=== PATIENT | male | born 1935 ===

== ENCOUNTER 2017-08-18 11:15 | Emergency (ER) | payer MEDICARE, OTHER ==
[2017-08-18 11:22] VITALS: BP 144/82; PULSE 91; RESP 16; TEMP 97.6; O2SAT 98
[2017-08-18] MEDS ORDERED: Tdap Vaccine 0.5 ml Vial (10-64 yrs) IM ONE ×2 (11:27→11:39)
[2017-08-18] MEDS ORDERED: Bacitracin 500 Units/gm Oint Foilpak UD ONE ×2 (11:32→13:33)
--- NOTE | 2017-08-18 11:33 | ED PDOC ---
HPI: General Adult Time Seen by Provider: 08/18/17 11:30 Chief Complaint (Nursing): Trauma Chief Complaint (Provider): FALL/HEAD INJURY History Per: Patient (82 Y/O MALE H/O DM HERE WITH COMPLAINT OF FALL TODAY WHEN HE TRIPPED AND FELL ON STAIRS TODAY. NO LOC AFTER HEAD INJURY. IS NOT ON ANY ANTICOAGULANTS. NOTES ADDITIONAL NECK PAIN/RIGHT HAND PAIN/RIGHT KNEE PAIN.) Past Medical History Reviewed: Historical Data, Nursing Documentation, Vital Signs Vital Signs: Last Vital Signs Temp 97.6 F 08/18/17 11:18 Pulse 91 H 08/18/17 11:18 Resp 16 08/18/17 11:18 BP 144/82 08/18/17 11:18 Pulse Ox 98 08/18/17 16:20 - Family History Family History: States: No Known Family Hx - Home Medications Home Medications: Ambulatory Orders Medication Instructions Recorded Cephalexin [Keflex] 500 mg PO BID #9 capsule 08/18/17 Simvastatin [Zocor] 20 mg PO HS 08/18/17 metFORMIN [glucOPHAGE] 500 mg PO BID 08/18/17 - Allergies Allergies/Adverse Reactions: Allergies Allergy/AdvReac Type Severity Reaction Status Date / Time No Known Allergies Allergy Verified 08/18/17 11:18 Review of Systems ROS Statement: Except As Marked, All Systems Reviewed And Found Negative Musculoskeletal: Positive for: Hand Pain, Other (KNEE PAIN) Neurological: Positive for: Other (HEAD INJURY) Physical Exam - Reviewed Nursing Documentation Reviewed: Yes Vital Signs Reviewed: Yes - Physical Exam Appears: Positive for: Well, Non-toxic, No Acute Distress Head Exam: Positive for: NORMOCEPHALIC. Negative for: ATRAUMATIC (5.5 CM DEEP LACERATION ABovE RIGHT ORBITAL. TENDER RIGHT ORBIT. EOM INTACT), NORMAL INSPECTION (MULTIPLE ABRASION RIGHT FACIAL REGION OF FACE AND FORHEAD) Skin: Positive for: Normal Color, Warm, DRY Eye Exam: Positive for: EOMI, Normal appearance, PERRL ENT: Positive for: Other (INTRAORAL ABRASION NO LACERATION RIGHT LOWER LIP INTERNAL). Negative for: Normal ENT Inspection Neck: Positive for: Normal, Painless ROM Cardiovascular/Chest: Positive for: Regular Rate, Rhythm Respiratory: Positive for: CNT, Normal Breath Sounds Gastrointestinal/Abdominal: Positive for: Normal Exam, Soft Back: Positive for: Normal Inspection Extremity: Positive for: Normal ROM, Tenderness (FINGER TENDER 2ND/3RD RIGHT HAND), Other (KNEE TENDER TO TOUCH. NO EFFUSION NOTED) Neurologic/Psych: Positive for: Alert, Oriented - ECG O2 Sat by Pulse Oximetry: 98 - Progress ED Course And Treament: TDAP 0.5 IM X 1 DOSE TYLENOL 975MG X 1 DOSE Medical Decision Making Medical Decision Making: Time:[address] FINDINGS: HEMORRHAGE: No intracranial hemorrhage. BRAIN: Good corticomedullary differentiation is seen. A chronic lacune is seen the right basal ganglia laterally Diffuse expansion of the ventriculosulcal and cisternal spaces is appreciated with white matter lucency compatible with diffuse cerebral atrophy and chronic microangiopathy. No suspicious extra- axial fluid collection is identified and the midline brain anatomy appears grossly nonfocal as imaged. There is no mass effect throughout. VENTRICLES: Unremarkable. No hydrocephalus. CALVARIUM: Unremarkable. PARANASAL SINUSES: Mild left maxillary sinusitis identified. MASTOID AIR CELLS: Unremarkable as visualized. No inflammatory changes. OTHER FINDINGS: None. IMPRESSION: Age related neuro degenerative changes are identified as well as a small chronic lacune right basal ganglia. Follow-up MRI or CT are available as clinically warranted. Incidental limited left maxillary sinusitis. Time: 1226 Knee X-Ray FINDINGS: BONES: No acute fracture. JOINTS: Mild tricompartmental narrowing. JOINT EFFUSION: None. OTHER FINDINGS: None. IMPRESSION: No demonstrated fracture or dislocation. Mild degenerative changes. Hand X-Ray FINDINGS: RIGHT MIDDLE FINGER: No acute fracture. JOINTS: Mild degenerative change. SOFT TISSUES: Normal. OTHER FINDINGS: None. IMPRESSION: No demonstrated fracture or dislocation. Time:[address] FINDINGS: RIGHT ORBIT: RIGHT BONY ORBIT: Normal. RIGHT INTRAORBITAL STRUCTURES: Globe: Normal. Extraocular muscles: Normal. Post septal space: Normal. Optic Nerve: Normal. Lacrimal Apparatus: Normal. RIGHT PRESEPTAL SOFT TISSUES: Mild periorbital soft tissue edema is appreciate which is predominantly supraorbital extends cephalad to the right frontal soft tissues moderately with trace emphysematous changes at the frontal soft tissues which may indicate laceration. Clinically correlate. No retained radiodense foreign body identified. LEFT ORBIT: LEFT BONY ORBIT: Normal. LEFT INTRAORBITAL STRUCTURES: Globe: Normal. Extraocular muscles: Normal. Post septal space: Normal Optic Nerve: Normal. . Lacrimal Apparatus: Normal. LEFT PRESEPTAL SOFT TISSUES: Normal. OTHER: Incidental left maxillary sinus identified. IMPRESSION: No fracture identified either orbit though mild right frontal scalp and limited right preseptal periorbital soft tissue edema is identified. Potential right frontal scalp laceration. Clinically correlate further. No retained radiodense foreign body identified. Incidental left maxillary sinusitis identified. Time: [address] FINDINGS: VERTEBRAE: There is no definitive fracture appreciated throughout the cervical spine although a limited spondylolisthesis is identified, grade 1, at C6-7 comment presumably degenerative. C6 is minimally anterior to C7 by 2-3 mm. Cervical curvature is otherwise normal. No destructive bony lesion is appreciable. Multilevel spondylosis appears of mild severity, predominantly anterior rather than posterior and there is multilevel facet arthropathy which is advanced at the upper to mid moderate degenerative change identified the C1-2 articulates with the craniocervical junction intact. Prevertebral paraspinal soft tissues appear unremarkable. Levels and moderate otherwise. DISCS/SPINAL CANAL/NEURAL FORAMINA: At C2-3, there is a [id number] degenerative left neural foraminal stenosis due to uncovertebral and facet arthropathy with no significant right neural foraminal stenosis. No significant central canal stenosis. Limited disc bulging is noted. At C3-4, a limited disc bulge is appreciate without significant central canal stenosis. Uncovertebral and facet joint degenerative changes result in moderate to severe right neural foraminal stenosis but none on the left. At C4-5, a small disc osteophyte complex is appreciate without significant central canal stenosis. Degenerative osteophytes results in a mild right and severe left neural foraminal stenosis. At C5-6, a disc osteophyte complex is appreciated causing moderate central stenosis with separate osteophytes resulting in moderate bilateral neural foraminal stenosis. C6-7 and C7-T1 neural foramina and central canal are widely patent despite minimal grade 1 C6-7 spondylolisthesis. PARASPINAL SOFT TISSUES: As above. OTHER FINDINGS: None. IMPRESSION: 1. No acute fracture throughout the cervical spine. Limited grade 1 spondylolisthesis C6-7 which is felt to be degenerative. 2. 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 3. Diffuse multilevel degenerative uncovertebral and facet arthropathy are identified variably, seen worst at right C4 and left neural foramina which are moderate to severe and severely stenosed respectively. Scribe Attestation: Documented by Karishma Sinha, acting as a scribe for Marybeth Bernardo PA. Provider Scribe Attestation: All medical record entries made by the Scribe were at my direction and personally dictated by me. I have reviewed the chart and agree that the record accurately reflects my personal performance of the history, physical exam, medical decision making, and the department course for this patient. I have also personally directed, reviewed, and agree with the discharge instructions and disposition. Disposition - Clinical Impression Clinical Impression: Facial contusion, Head injury, Facial laceration, Knee contusion, Hand contusion - Patient ED Disposition Is Patient to be Admitted: No - Disposition Disposition: Routine/Home Disposition Time: 13:33 Condition: FAIR Additional Instructions: FOLLOW UP WITH YOUR PMD/URGENT CARE IN 5 DAYS TO REMOVAL EXTERNAL SUTURES Prescriptions: Cephalexin [Keflex] 500 mg PO BID #9 capsule Instructions: Laceration Repair, Closed Head Injury, Contusion (DC) Forms: [employer] ([employer]) Print Language: MAURITANIAN Procedure: Wound Repair - Time Performed Time Performed: 13:30 - Time Out Time Out: Site verified - Consent Obtained Consent obtained: Verbal - Performed by Performed by: Mid-level Provider - Indications Indication(s):: Laceration - Location Location:: Right, Face Shape:: Curvilinear Dimensions Length cm: 5.5 CM Dimensions width cm: 2.0 CM Depth:: Subcutaneous fascia - Anesthetic Technique Anesthetic Technique: Topical Local/Regional Anesthetic:: Lidocaine 1% w/epi - Debris Debris:: None - Irrigated Irrigated with ml of normal saline: 200 ML STERILE WATER - Complexity Complexity:: Complex (3 layer) - Wound repair method Sutures:: # (FIVE 5-0 VICRYL SUTURES TWO DEEP LAYERS ), Size (THIRTEEN 6-0 PROLENE INTERRUPTED EXTERNAL) - Muscle repiar layer closed with Muscle repair layer closed with:: Abx ointment applied, Tetanus ordered - Patient tolerated procedure Patient Tolerated Procedure:: Well
--- NOTE | 2017-08-18 12:19 | CT ---
PROCEDURE: CT HEAD WITHOUT CONTRAST. HISTORY: HEAD INJURY COMPARISON: None available. TECHNIQUE: Axial computed tomography images were obtained through the head/brain without intravenous contrast. Radiation dose: Total exam DLP = 862.29 mGy-cm. This CT exam was performed using one or more of the following dose reduction techniques: Automated exposure control, adjustment of the mA and/or kV according to patient size, and/or use of iterative reconstruction technique. FINDINGS: HEMORRHAGE: No intracranial hemorrhage. BRAIN: Good corticomedullary differentiation is seen. A chronic lacune is seen the right basal ganglia laterally Diffuse expansion of the ventriculosulcal and cisternal spaces is appreciated with white matter lucency compatible with diffuse cerebral atrophy and chronic microangiopathy. No suspicious extra-axial fluid collection is identified and the midline brain anatomy appears grossly nonfocal as imaged. There is no mass effect throughout. VENTRICLES: Unremarkable. No hydrocephalus. CALVARIUM: Unremarkable. PARANASAL SINUSES: Mild left maxillary sinusitis identified. MASTOID AIR CELLS: Unremarkable as visualized. No inflammatory changes. OTHER FINDINGS: None. IMPRESSION: Age related neuro degenerative changes are identified as well as a small chronic lacune right basal ganglia. Follow-up MRI or CT are available as clinically warranted. Incidental limited left maxillary sinusitis.
[2017-08-18] MEDS ORDERED: Lidocaine 1% w Epi 1:100,000 Inj IJ ONE (12:25)
[2017-08-18] MEDS ORDERED: Lidocaine 1% w Epi 1:100,000 Inj ONE (12:27)
--- NOTE | 2017-08-18 12:29 | CT ---
PROCEDURE: CT ORBITS WITHOUT CONTRAST. HISTORY: FACIAL INJURY RIGHT EYE COMPARISON: None available. TECHNIQUE: Axial CT images of the orbits were obtained. Coronal and sagittal reformats were generated. Radiation dose: Total exam DLP = 826.36 mGy-cm. This CT exam was performed using one or more of the following dose reduction techniques: Automated exposure control, adjustment of the mA and/or kV according to patient size, and/or use of iterative reconstruction technique. FINDINGS: RIGHT ORBIT: RIGHT BONY ORBIT: Normal. RIGHT INTRAORBITAL STRUCTURES: Globe: Normal. Extraocular muscles: Normal. Post septal space: Normal. Optic Nerve: Normal. Lacrimal Apparatus: Normal. RIGHT PRESEPTAL SOFT TISSUES: Mild periorbital soft tissue edema is appreciate which is predominantly supraorbital extends cephalad to the right frontal soft tissues moderately with trace emphysematous changes at the frontal soft tissues which may indicate laceration. Clinically correlate. No retained radiodense foreign body identified. LEFT ORBIT: LEFT BONY ORBIT: Normal. LEFT INTRAORBITAL STRUCTURES: Globe: Normal. Extraocular muscles: Normal. Post septal space: Normal Optic Nerve: Normal. . Lacrimal Apparatus: Normal. LEFT PRESEPTAL SOFT TISSUES: Normal. OTHER: Incidental left maxillary sinus identified. IMPRESSION: No fracture identified either orbit though mild right frontal scalp and limited right preseptal periorbital soft tissue edema is identified. Potential right frontal scalp laceration. Clinically correlate further. No retained radiodense foreign body identified. Incidental left maxillary sinusitis identified.
--- NOTE | 2017-08-18 12:43 | CT ---
PROCEDURE: CT Cervical Spine without contrast HISTORY: FALL COMPARISON: None available. TECHNIQUE: Axial computed tomography images were obtained of the cervical spine without the use of intravenous contrast. Coronal and sagittal reformatted images were created and reviewed. Radiation dose: Total exam DLP = 542.75 mGy-cm. This CT exam was performed using one or more of the following dose reduction techniques: Automated exposure control, adjustment of the mA and/or kV according to patient size, and/or use of iterative reconstruction technique. FINDINGS: VERTEBRAE: There is no definitive fracture appreciated throughout the cervical spine although a limited spondylolisthesis is identified, grade 1, at C6-7 comment presumably degenerative. C6 is minimally anterior to C7 by 2-3 mm. Cervical curvature is otherwise normal. No destructive bony lesion is appreciable. Multilevel spondylosis appears of mild severity, predominantly anterior rather than posterior and there is multilevel facet arthropathy which is advanced at the upper to mid moderate degenerative change identified the C1-2 articulates with the craniocervical junction intact. Prevertebral paraspinal soft tissues appear unremarkable. Levels and moderate otherwise. DISCS/SPINAL CANAL/NEURAL FORAMINA: At C2-3, there is a [id number] degenerative left neural foraminal stenosis due to uncovertebral and facet arthropathy with no significant right neural foraminal stenosis. No significant central canal stenosis. Limited disc bulging is noted. At C3-4, a limited disc bulge is appreciate without significant central canal stenosis. Uncovertebral and facet joint degenerative changes result in moderate to severe right neural foraminal stenosis but none on the left. At C4-5, a small disc osteophyte complex is appreciate without significant central canal stenosis. Degenerative osteophytes results in a mild right and severe left neural foraminal stenosis. At C5-6, a disc osteophyte complex is appreciated causing moderate central stenosis with separate osteophytes resulting in moderate bilateral neural foraminal stenosis. C6-7 and C7-T1 neural foramina and central canal are widely patent despite minimal grade 1 C6-7 spondylolisthesis. PARASPINAL SOFT TISSUES: As above. OTHER FINDINGS: None. IMPRESSION: 1. No acute fracture throughout the cervical spine. Limited grade 1 spondylolisthesis C6-7 which is felt to be degenerative. 2. 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 3. Diffuse multilevel degenerative uncovertebral and facet arthropathy are identified variably, seen worst at right C4 and left neural foramina which are moderate to severe and severely stenosed respectively.
--- NOTE | 2017-08-18 12:45 | RAD ---
PROCEDURE: Right middle finger radiographs. HISTORY: HAND INJURY COMPARISON: None. TECHNIQUE: AP radiograph of the right hand, as well as spot oblique and lateral images of right middle finger were obtained. FINDINGS: RIGHT MIDDLE FINGER: No acute fracture. JOINTS: Mild degenerative change. SOFT TISSUES: Normal. OTHER FINDINGS: None. IMPRESSION: No demonstrated fracture or dislocation.
--- NOTE | 2017-08-18 12:46 | RAD ---
PROCEDURE: Right Knee Radiographs. HISTORY: KNEE INJURY COMPARISON: None. FINDINGS: BONES: No acute fracture. JOINTS: Mild tricompartmental narrowing. JOINT EFFUSION: None. OTHER FINDINGS: None. IMPRESSION: No demonstrated fracture or dislocation. Mild degenerative changes.
== END 2017-08-18 13:56 | disposition home or self-care (01) ==
LOC: H.ER 11:15
DX: S00.83XA Contusion of other part of head, initial encounter (principal); S09.90XA Unspecified injury of head, initial encounter; S80.01XA Contusion of right knee, initial encounter; S60.221A Contusion of right hand, initial encounter; S01.81XA Laceration without foreign body of other part of head, initial encounter; Z23 Encounter for immunization; E11.9 Type 2 diabetes mellitus without complications; Z79.84 Long term (current) use of oral hypoglycemic drugs; M48.02 Spinal stenosis, cervical region; W10.9XXA Fall (on) (from) unspecified stairs and steps, initial encounter

== ENCOUNTER 2017-08-23 14:33 | Emergency (ER) | payer OTHER ==
--- NOTE | 2017-08-23 15:44 | ED PDOC ---
HPI: General Adult Time Seen by Provider: 08/23/17 15:28 Chief Complaint (Nursing): Suture/Staple Removal Chief Complaint (Provider): suture removal History Per: Patient History/Exam Limitations: no limitations Onset/Duration Of Symptoms: Days (x5) Current Symptoms Are (Timing): Still Present Additional Complaint(s): 82 y/o male presents to the ED for suture removal. Patient was seen here 5 days ago at which time 12 sutures were placed for repair of laceration to his right forehead s/p trip and fall. Patient is complaining of slight pain around the wound, but states he is taking Tylenol with relief. Patient also states he is compliant with the antibiotics he was given at the time. Reports tetanus is up to date. PMD: in [place] Past Medical History Reviewed: Historical Data, Nursing Documentation, Vital Signs Vital Signs: Last Vital Signs Temp 98 F 08/23/17 14:59 Pulse 77 08/23/17 14:59 Resp 20 08/23/17 14:59 BP 150/88 08/23/17 14:59 Pulse Ox 100 08/23/17 15:50 - Medical History PMH: Diabetes - Surgical History Other surgeries: Left knee surgery, right wrist surgery - Family History Family History: States: No Known Family Hx - Living Arrangements Living Arrangements: With Family - Social History Current smoker - smoking cessation education provided: No Alcohol: None Drugs: Denies - Immunization History Hx Tetanus Toxoid Vaccination: Yes - Home Medications Home Medications: Ambulatory Orders Medication Instructions Recorded Cephalexin [Keflex] 500 mg PO BID #9 capsule 08/18/17 Simvastatin [Zocor] 20 mg PO HS 08/18/17 metFORMIN [glucOPHAGE] 500 mg PO BID 08/18/17 - Allergies Allergies/Adverse Reactions: Allergies Allergy/AdvReac Type Severity Reaction Status Date / Time No Known Allergies Allergy Verified 08/18/17 11:18 Review of Systems ROS Statement: Except As Marked, All Systems Reviewed And Found Negative Skin: Positive for: Other (laceration noted to right forehead) Physical Exam - Reviewed Nursing Documentation Reviewed: Yes Vital Signs Reviewed: Yes - Physical Exam Appears: Positive for: Well, Non-toxic, No Acute Distress Head Exam: Negative for: NORMAL INSPECTION (well healed sutured laceration to right forehead, no evidence of infection) Skin: Positive for: Normal Color. Negative for: Rash Eye Exam: Positive for: Normal appearance Neurologic/Psych: Positive for: Alert, Oriented, Gait (steady) - ECG O2 Sat by Pulse Oximetry: 100 (RA) Pulse Ox Interpretation: Normal Medical Decision Making Medical Decision Makin:40 Impression: 82 y/o male here for suture removal Plan: --12 sutures were removed without any difficulty. Patient tolerated the procedure well. Wound is well healed. Patient was given wound care instructions. Scribe Attestation: Documented by Justino Guillaume, acting as a scribe for Rena Jeffery PA-C. Provider Scribe Attestation: All medical record entries made by the Scribe were at my direction and personally dictated by me. I have reviewed the chart and agree that the record accurately reflects my personal performance of the history, physical exam, medical decision making, and the department course for this patient. I have also personally directed, reviewed, and agree with the discharge instructions and disposition. Disposition - Clinical Impression Clinical Impression: Removal of suture - Patient ED Disposition Is Patient to be Admitted: No Counseled Patient/Family Regarding: Diagnosis, Need For Followup - Disposition Referrals: [facility] [Outside] Disposition: Routine/Home Disposition Time: 15:55 Condition: STABLE Additional Instructions: Keep wound clean and dry. Follow-up as needed with primary doctor. Instructions: Stitches Removal Forms: [employer] (Uzbek)
[2017-08-23 16:32] VITALS: BP 120/86; PULSE 74; RESP 18; TEMP 98.3; O2SAT 98
== END 2017-08-23 16:32 | disposition home or self-care (01) ==
LOC: H.ER 14:33
DX: Z48.02 Encounter for removal of sutures (principal); E11.9 Type 2 diabetes mellitus without complications; Z79.84 Long term (current) use of oral hypoglycemic drugs